=== PATIENT | male | born 1975 | race Caucasian/White ===

== ENCOUNTER 2021-01-01 16:08 | Emergency (ER) | payer SELFPAY ==
[~2021-01-01] VITALS: Ht 190.5 cm; Wt 136.1 kg
[2021-01-01 16:59] VITALS: BP 149/88
== END 2021-01-01 17:42 | disposition home or self-care (01) ==
LOC: ER 16:08 → EDUNIT# 16:08 → EDBD 16:08 → ER 17:42
DX: S63.502A Unspecified sprain of left wrist, initial encounter (principal); S93.402A Sprain of unspecified ligament of left ankle, initial encounter; V49.9XXA Car occupant (driver) (passenger) injured in unspecified traffic accident, initial encounter; Y93.89 Activity, other specified; Y92.89 Other specified places as the place of occurrence of the external cause; Y99.8 Other external cause status
CPT/HCPCS: 73090; 73110; 73610